=== PATIENT | female | born 1965 | race Caucasian/White ===

== ENCOUNTER → 2019-10-25 15:52 | Outpatient (CLI) | payer BC, SELFPAY ==
[2019-10-31 20:07] LABS: Age Gdln ACOG Testing 30-65 (.)
[2019-11-03 17:48] LABS: HPV APTIMA, High Risk Negative (Negative); HPV Reflexed? YES, CHARGE PATIENT
== END ==
PROVIDERS: Referring Provider Obstetrics & Gynecology; Visit Provider Obstetrics & Gynecology
DX: Z12.4 Encounter for screening for malignant neoplasm of cervix (principal)
CPT/HCPCS: 87624; 88175; G0145

== ENCOUNTER → 2019-11-08 07:14 | Outpatient (CLI) | payer BC, SELFPAY ==
--- NOTE | 2019-11-07 15:58 | CER_PTH ---
PATIENT: ZULLY BOLES LOC: [facility] U#:[id number] AGE/SX: 59/F ROOM: RE11/08/[address]: Dr. Jean Carlos Amaya MD : [id number] BED: DIS: SPEC #: [id number] RECD: 11/07/19 17:25 STATUS: PEGGY ANDRE #: [id number] JAMES: 11/07/19 15:[address]: Jean Carlos Amaya DEPT: SURGICAL PATHOLOGY RECD BY: Chau Velasquez Tissues: Uterine cervix, NOS Procedures: Surgery Specimen Level IV HEADER OPERATION: Polypectomy PRE-OP DIAGNOSIS: Cervical polyp TISSUE SUBMITTED: Cervical polyp MICROSCOPIC DIAGNOSIS Cervical polyp, excision: Benign, inflamed endocervical polyp. AM:jaycob 11/09/19 MICROSCOPIC DESCRIPTION Slides are reviewed. GROSS DESCRIPTION Received in fixative is one container labeled with the patient's name and designated cervical polyp. The specimen consists of a piece of shetty-pink polyp measuring 1.5 x 0.7 x 0.3 cm. The entire specimen is submitted in one cassette. / SJ:rg 11/08/19 TC:1 CPT: [id number]
== END ==
PROVIDERS: Referring Provider Obstetrics & Gynecology; Visit Provider Obstetrics & Gynecology
DX: N84.1 Polyp of cervix uteri (principal)
CPT/HCPCS: 88305

== ENCOUNTER → 2020-02-08 17:36 | Outpatient (CLI) | payer BC, SELFPAY | PROVIDERS: PCP Internal Medicine; Referring Provider Physician Assistant; Visit Provider Physician Assistant | DX: Z20.828 Contact with and (suspected) exposure to other viral communicable diseases (principal) | CPT/HCPCS: 87635; C9803; U0003 ==

== ENCOUNTER → 2020-02-22 16:45 | Outpatient (CLI) | payer BC, SELFPAY | PROVIDERS: PCP Internal Medicine; Referring Provider Physician Assistant Surgical; Visit Provider Physician Assistant Surgical | DX: Z20.828 Contact with and (suspected) exposure to other viral communicable diseases (principal) | CPT/HCPCS: 87635; C9803; U0003 ==